=== PATIENT | female | born 1980 | race Caucasian/White ===

== ENCOUNTER 2019-07-31 22:22 | Emergency (ER) | payer MEDICAID, OTHER ==
[~2019-07-31] VITALS: Ht 152.4 cm; Wt 83.1 kg
[2019-07-31 22:26] VITALS: BP 127/68
[2019-07-31] MEDS ORDERED: metoclopramide 5 mg/ml inj IM ONE (22:45)
== END 2019-07-31 23:03 | disposition home or self-care (01) ==
LOC: ER 22:23
DX: G43.909 Migraine, unspecified, not intractable, without status migrainosus (principal); M79.10 Myalgia, unspecified site; F41.9 Anxiety disorder, unspecified; F90.9 Attention-deficit hyperactivity disorder, unspecified type; F17.200 Nicotine dependence, unspecified, uncomplicated
CPT/HCPCS: 96372; 99283; J2765

== ENCOUNTER 2024-06-14 12:57 | Emergency (ER) | payer MEDICAID, OTHER ==
[~2024-06-14] VITALS: Ht 147.3 cm; Wt 88.0 kg
[2024-06-14 12:59] VITALS: BP 156/82; PULSE 83; RESP 16; O2SAT 98
[2024-06-14] MEDS: ondansetron 4mg rapidly disintigrating tab PO ONE (14:53)
[2024-06-14] MEDS: LORazepam 1 MG tablet PO ONE (15:44)
[2024-06-14 15:54] VITALS: TEMP 98.1
== END 2024-06-14 15:56 | disposition home or self-care (01) ==
LOC: ER 12:58
DX: F41.9 Anxiety disorder, unspecified (principal); R53.81 Other malaise; R53.83 Other fatigue; G43.909 Migraine, unspecified, not intractable, without status migrainosus; M79.7 Fibromyalgia; Z20.822 Contact with and (suspected) exposure to COVID-19
CPT/HCPCS: 36415; 87811; 99283